=== PATIENT | male | born 1955 | race Caucasian/White ===

== ENCOUNTER 2016-10-17 05:32 | Inpatient (IN) ==
[2016-10-17] MEDS ORDERED: ALVIMOPAN 12 MG CAPSULE PO ONE (06:00)
[2016-10-17] MEDS ORDERED: ALVIMOPAN 12 MG CAPSULE ONE (06:00)
[2016-10-17] MEDS ORDERED: SODIUM PHOSPHATE ENEMA 133 ML BOTTLE RECTAL ONE ×2 (06:00→06:20)
[2016-10-17] MEDS: LACTATED RINGERS 1,000 ML IV SCH ×2 (06:30→10:01)
--- NOTE | 2016-10-17 07:00 | History and Physical Update ---
History and Physical Update - History and Physical H&P was reviewed, the patient examined and there: are no changes in the patients condition since last H&P was completed.
[2016-10-17] MEDS ORDERED: PROPOFOL 200 MG/20 ML VIAL IV ONE (07:08)
[2016-10-17] MEDS ORDERED: NEOSTIGMINE 10 MG/10 ML VIAL ONE (07:08)
[2016-10-17] MEDS ORDERED: MINERAL OIL/PETROLATUM OPH OINT 3.5 GM TUBE ONE (07:08)
[2016-10-17] MEDS ORDERED: LIDOCAINE 2% 5 ML VIAL ONE (07:08)
[2016-10-17] MEDS ORDERED: ONDANSETRON 4 MG/2 ML VIAL ONE (07:08)
[2016-10-17] MEDS ORDERED: ROCURONIUM 100 MG/10 ML VIAL IV ONE (07:08)
[2016-10-17] MEDS ORDERED: KETOROLAC 30 MG/1 ML VIAL ONE (07:08)
[2016-10-17] MEDS ORDERED: GLYCOPYRROLATE 0.4 MG/2 ML VIAL ONE (07:08)
[2016-10-17] MEDS ORDERED: cefTRIAXone 1,000 MG VIAL ONE (07:16)
[2016-10-17] MEDS ORDERED: cefTRIAXone 1,000 MG in SODIUM CHLORIDE 0.9% 100 ML IV ONE (07:43)
[2016-10-17 08:14] LABS: Apearance,Urine Slightly Hazy (Clear); Bilirubin,Urine Negative (Negative); Blood, Urine Moderate mg/dL (Negative); Glucose,Urine (UA) Negative (Negative); Ketones,Urine Negative (Negative); Mucus,Urine Occasional /LPF (Occasional); Nitrite,Urine Negative (Negative); Protein,Urine Negative; RBC,Urine 12 /HPF (0-4); Squamous Epithelial Cell,Urine Occasional /HPF (0-10); Urine Color Straw (Yellow); Urine Specific Gravity 1.009 (1.001-1.035); Urine Urobilinogen < 2.0 EU/DL (0.2-1.0); WBC,Urine 1 /HPF (0-6)
[2016-10-17] MEDS ORDERED: LACTULOSE 20 GM/30 ML UDCUP PO PRN (11:07)
[2016-10-17] MEDS ORDERED: diphenhydrAMINE 50 MG/1 ML VIAL IV PRN (11:07)
[2016-10-17] MEDS ORDERED: ONDANSETRON 4 MG/2 ML VIAL IV PRN ×2 (11:07→11:55)
--- NOTE | 2016-10-17 11:28 | Operative Note ---
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 He's elected to undergo surgery. Proposed procedure of robotic-assisted laparoscopic radical prostatectomy was explained at length and in detail. Risk, complications, outcomes, sequelae, prognosis and alternative therapy was thoroughly discussed. Patient understood this and agreed to proceed Patient was brought to the operative suite and placed table in supine position. He's been given a general endotracheal anesthetic and then secured in place to low lithotomy position in the usual fashion for radical prostatectomy. He was placed in the Trendelenburg position. An incision created at the upper edge of the umbilicus. Veress needle was then used to valladares the abdominal wall into the abdomen peritoneal cavity and confirmed with the saline drop test into click technique. Millimeter trocar was placed in this. Kell was inserted and intra-abdominal contents were examined. There was no vascular or bowel injury. There some adhesions of the sigmoid to the left lower lateral wall of the pelvis and lower abdomen. 8 millimeter trocar was placed 8 centimeters lateral to the camera on both sides. This was done under direct vision. Cystoscopy was placed between #1 , on the left and the camera port. This was placed about 4 inches above them. And the fourth was placed lateral to the right hand third arm at least 8 centimeters. These were all placed under direct vision. The robot was then docked and I broke scrub and went to the console. Susy bipolar forceps were in the left and a monopolar scissors and the right and this dissection was begun posteriorly. The cul-de-sac was incised and dissection down to the ampulla of the vas deferens. Each vas deferens was isolated and clipped with a Weck clip and then divided. Seminal vesicles were then dissected out of their bed. Care was taken to use minimal cautery as this is a nerve sparing. A window in the fascia was then created posteriorly. Attention was directed to the creating a bladder flap. Incision created lateral to the median umbilical ligaments from the internal ring to the anterior abdominal wall. This was done on both sides. Median umbilical ligaments were then divided and the bladder flap was dropped down. Endopelvic fascia was incised. Attachments were dissected off the prostate. Unfortunately there is a large vein right in the middle of the prostate on both sides coming from the dorsal venous complex. This is going to make a nerve sparing difficult. Attention was then directed to the bladder neck. With light traction on the Brownlee in bunching of the midline tissue junction of the bladder and prostate were identified. This was incised with cautery and dissection sharply down. The bladder neck in wasn't entered. The Brownlee balloon was deflated and the posterior bladder neck was incised. The pedicles were taken down sequentially with Weck clips and divided. Prostate was then freed up. Dissection continued posteriorly where the seminal vesicles and the and the vas deferens were then pulled up through the wound. Posterior lateral pedicles were taken down intermittently with Weck clips and divided. On both sides the lateral prostatic fascia was then dissected off. Care had to be done due to the large vein on both sides but ultimately we we got him off without any significant bleeding. Prostate was lifted up and then the neurovascular bundle posterior laterally was then dissected off with sharp dissection. Small veins were left to coagulate. This was done on both sides. Dissection was continued up to the apex. Dorsal venous complex was ligated with #1 Vicryl. This was then divided and dissection was continued posteriorly to the urethra which was divided anteriorly. Brownlee catheter was pulled back and the posterior urethra was then divided. The remainder of the attachments at the prostate were divided and the prostate was seminal vesicles and vasa were then removed and placed the specimen bag. The pelvis was irrigated and drained. No dissection was done on both sides. Having tissue BX to the iliac vein was entered and the lymphatic tissue was swept and obturator fossa. The obturator nerve was kept in vision at all times and not injured. These jaswinder packages were then sent separately. A 2-0 Vicryl was used to approximate the posterior urethral plate to the posterior bladder neck. 3 oh codeine was then used to provide anastomosis. We removed began the 6 o' clock position outside and on both sides and then ran the anastomosis from the 7 o'clock to 11 o'clock and 5 o'clock to 1 o'clock position. Prior to complete closure and the 22 Syrian Brownlee was then inserted and 12 cc were placed in the balloon. The anastomotic suture was tied securely. The catheter was irrigated and this was a watertight anastomosis. Pneumoperitoneum was dropped there was a small bleeding vein on the neurovascular bundle on the right side. A piece of Surgicel was placed on this. The robot was undocked and the patient was laid flat and the trochars were removed. The assistance port incision was extended and the rectus muscles were divided slightly. The specimen bag containing the prostate and seminal vesicles was then removed. This wound was then closed with a running 0 Monocryl. All wounds are irrigated him and drained and hemostasis provided by the cautery. The skin of all wounds were closed skin clips. Sterile dressings were placed on the wound. The Brownlee catheter was left to gravity drainage. Patient was then awakened from general anesthesia having tolerated procedure well and was sent to the recovery room in stable condition. All sponge, needle and instrument counts correct times 2. Anesthesia: GETA Surgeon / Physician: Shahram Grover Estimated blood loss: other (150cc) Specimens: other (prostate with seminal vesicles, bilateral pelvic nodes) Condition: stable Disposition: PACU Discharge Plan - Discharge Medications No Action No Known Home Medications [No Known Home Medications] - Follow Up or Referral - Forms/Instructions
[2016-10-17] MEDS ORDERED: HYDROmorphone PCA 30 MG/30 ML SYRINGE IV SCH (11:30)
[2016-10-17] MEDS: HYDROmorphone 2 MG/1 ML VIAL IV PRN ×4 (12:00→12:15)
--- NOTE | 2016-10-17 14:20 | Anesthesia ---
Anesthesia Post OP - Post Ansesthetic Evaluation Patient seen in post op: Yes Resp: within normal limits CV: within normal limits Mental: within normal limits Temp: within normal limits [id number]: within normal limits Nausea and Vomiting: within normal limits Pain: within normal limits
[2016-10-17] MEDS: DEXTROSE 5% NACL 0.45% 1,000 ML IV SCH (14:45)
--- NOTE | 2016-10-17 16:51 | Urology Progress Note ---
Urology - PN: Subj Interval history: Postoperative check. Urine is blood-tinged. He is awake and alert. Vital signs are stable. Patient is stable. Exam - Constitutional Vitals: Period Temp Pulse Resp BP Sys/Brunner Pulse Ox Last 24 Hr 97.0 F-97.5 F 48-64 12-20 107-148/59-88 94-100
[2016-10-17] MEDS: SOLIFENACIN 5 MG TABLET PO SCH (18:07)
--- NOTE | 2016-10-17 18:49 | Pulmonology Progress Note ---
Pulmonary - PN: Subj Interval history: This is a 61-year-old white male. He was cleared for anesthesia and surgery in my office. Earlier today the patient had a radical prostatectomy for prostate cancer. He has done well. His other problems or diverticulosis and he has had an incomplete right bundle branch block. He has a regular sinus rhythm. 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 Vital signs. See below. Medicines have been reviewed. Head eyes ears nose and throat are normal. Neck is normal. Chest is clear. Heart no gallop Abdomen a few scattered bowel sounds Extremities nothing to suggest deep venous thrombophlebitis Neurologic. Cranial nerves are intact long track motor functions intact. Remainder the physical exam is noncontributory. Plan. 1 continue home medicines. 2. Follow-up lab Exam (Progress Note) - Constitutional Vitals: Period Temp Pulse Resp BP Sys/Brunner Pulse Ox Last 24 Hr 97.0 F-98.0 F 48-66 12-20 107-148/59-88 94-100
[2016-10-17] MEDS: ALVIMOPAN 12 MG CAPSULE PO SCH (20:17)
[2016-10-18] MEDS: DEXTROSE 5% NACL 0.45% 1,000 ML IV SCH (00:21)
[2016-10-18 05:37] LABS: Basophils % 0.1 % (0.0-0.8); Hematocrit 37.1 VOL% (42.0-52.0); Hemoglobin 12.4 GM/DL (14.0-18.0); Immature Granulocytes % 0.4 %; Immature Granulocytes Absolute 0.05 #; Lymphocytes % 7.5 % (21.2-54.2); Mean Corpuscular HGB Conc 33.4 GM/DL (32-36); Mean Corpuscular Hemoglobin 33 PG (27-34); Mean Corpuscular Volume 99.2 FL (87-102); Mean Platelet Volume 11.7 FL (9.6-12.0); Monocytes # 0.8 10*3/uL (0.11-0.8); Monocytes % 6.3 % (1.7-12.7); Neutrophils # 11.4 10*3/uL (1.4-7.4); Neutrophils % 85.7 % (38.7-73.9); Platelet Count 171 10*3/uL (130-400); Red Blood Count 3.74 10*6/uL (3.8-5.5); Red Cell Distribution Width 12.6 % (9.3-17.3); White Blood Count 13.3 10*3/uL (4.5-13.71)
[2016-10-18 06:06] LABS: Calcium 8.2 MG/DL (8.5-10.1); Osmolality,Calculated 281.5 MOS/KG (273-304); Potassium 3.9 MMOL/L (3.5-5.1)
[2016-10-18] MEDS: LACTATED RINGERS 1,000 ML IV SCH (06:17)
[2016-10-18] MEDS ORDERED: oxyCODONE/ACETAMINOPHEN 5-325 MG TABLET PO PRN (08:54)
[2016-10-18] MEDS ORDERED: MEPERIDINE 50 MG/1 ML VIAL IM PRN (08:55)
--- NOTE | 2016-10-18 08:58 | Urology Progress Note ---
Urology - PN: Subj Interval history: Postop day 1. Patient had a stable night. His urine is clearing. His abdomen is soft and flat. H&H is 12 and 34. Electrolytes normal. Creatinine is normal. Continue progressive care. Should be able to be discharged tomorrow 10/19/16. He will have his appointments and prescriptions. He will see my nerves on 10/26/16 for clip and catheter removal. He will see me the following week. Exam - Constitutional Vitals: Period Temp Pulse Resp BP Sys/Brunner Pulse Ox Last 24 Hr 97.0 F-99 F 48-89 12-20 107-148/59-88 94-100 Results - Labs CBC & BMP: 10/18/16 05:26 10/18/16 05:26 Specialty Discharge - Follow Up or Referrals Follow up with: Shahram Grover MD [Family Provider] - (Appt with Nunu Yang for nelson & staple removal on Oct [address] Grover on Oct 31 )
[2016-10-18] MEDS: ALVIMOPAN 12 MG CAPSULE PO SCH ×2 (09:32→20:13)
[2016-10-18] MEDS: SOLIFENACIN 5 MG TABLET PO SCH (09:32)
[2016-10-18] MEDS ORDERED: ALUMINUM/MAGNES/SIMETH MAX STR 30 ML UDCUP PO PRN (10:27)
[2016-10-18] MEDS: PANTOPRAZOLE 40 MG VIAL IV SCH (11:00)
[2016-10-18] MEDS: ALUMINUM/MAGNES/SIMETH MAX STR 30 ML UDCUP PO SCH ×3 (11:00→23:48)
--- NOTE | 2016-10-18 11:22 | Pulmonology Progress Note ---
Pulmonary - PN: Subj Interval history: Wilver Nieves, ANP-BC, GNP-BC, acting as scribe for Dr. Delano Madrigal Mr. Arriaga was seen today along with his . The patient is post-op day one from a robotic assisted radical prostatectomy. He states he is doing well from a surgical standpoint. He complains of incessant hiccupping. He denies flatus or a bowel movement. We've instructed him to not overeat since his diet is being advanced. He reports vomiting last night. We will treat him with Mylanta QID and PRN and Protonix. Medications have been reviewed. Mylanta and Protonix have been added. Labs have been reviewed. White count is 13,300 with 85.7% segs; H&H 12.4/37.1; PLT count 171,000; creatinine 1.10, BUN 18, electrolytes are normal. Urinalysis yesterday showed no evidence of infection. Exam (Progress Note) - Constitutional Vitals: Period Temp Pulse Resp BP Sys/Brunner Pulse Ox Last 24 Hr 97.0 F-99 F 48-89 12-20 113-148/64-88 94-100 Exam: Chest is clear Heart no gallop Abd is nondistended; but there are no bowel sounds heard Ext with nothing to suggest acute DVT Psych oriented x 3 Neuro long tract motor function is intact Plan: Mylanta and Protonix as above. Continue present treatment. Results - Labs CBC & BMP: 10/18/16 05:26 10/18/16 05:26 Specialty Discharge - Follow Up or Referrals Follow up with: Shahram Grover MD [Family Provider] - (Appt with Nunu Yang for nelson & staple removal on Oct [address] Grover on Oct 31 )
[2016-10-18] MEDS: oxyCODONE/ACETAMINOPHEN 5-325 MG TABLET PO PRN ×2 (15:47→20:13)
[2016-10-19] MEDS: ALUMINUM/MAGNES/SIMETH MAX STR 30 ML UDCUP PO SCH (05:55)
--- NOTE | 2016-10-19 08:02 | Urology Progress Note ---
Urology - PN: Subj Interval history: The patient is doing well postoperatively. He will continue to take laxatives as needed for constipation. His urine shows minimal hematuria. He'll be discharged today on previously written prescriptions Exam - Constitutional Vitals: Period Temp Pulse Resp BP Sys/Brunner Pulse Ox Last 24 Hr 98 F-100.6 F 64-76 16-18 106-144/61-71 94-97 Results - Labs CBC & BMP: 10/18/16 05:26 10/18/16 05:26 Specialty Discharge - Follow Up or Referrals Follow up with: Shahram Grover MD [Family Provider] - (Appt with Nunu Yang for nelson & staple removal on Oct [address] Grover on Oct 31 )
[2016-10-19] MEDS: PANTOPRAZOLE 40 MG VIAL IV SCH (08:21)
[2016-10-19] MEDS: ALVIMOPAN 12 MG CAPSULE PO SCH (08:22)
[2016-10-19] MEDS: SOLIFENACIN 5 MG TABLET PO SCH (08:22)
[2016-10-19 08:29] VITALS: BP 129/56
--- NOTE | 2016-10-19 11:17 | Pulmonology Progress Note ---
Pulmonary - PN: Subj Interval history: Wilver Nieves, ANP-BC, GNP-BC, acting as scribe for Dr. Delano Madrigal Your plans have been noted. We agree. We will sign off. Please reconsult PRN. Exam (Progress Note) - Constitutional Vitals: Period Temp Pulse Resp BP Sys/Brunner Pulse Ox Last 24 Hr 98 F-100.6 F 64-76 16-18 106-144/56-71 94-97 Results - Labs CBC & BMP: 10/18/16 05:26 10/18/16 05:26 Specialty Discharge - Follow Up or Referrals Follow up with: Shahram Grover MD [Family Provider] - (Appt with Nunu Yang for nelson & staple removal on Oct 26 at 8:[address] Grover on Oct 31 2:00)
--- NOTE | 2016-10-19 15:40 | Pathology Report from [facility] ---
ACCESSION # : [id number] PATIENT NAME : Earl Arriaga ORDERING DR : MIKE GALLEGOS MD CLINICAL HX: Prostate cancer POST-OP DX: Same SPECIMEN INFO: #1 Left neurovascular bundle #2 Segment of vas #3 Right obturator node #4 Left obturator node #5 Prostate GROSS DESCRIPTION: #1 Received fresh for frozen section labeled with the patient 's name "EARL ARRIAGA" and consists of a 0.5 x 0.2 cm hyperemic soft tissue fragment. Submitted in cassette #1 for frozen section.#2 Received in formalin labeled with the patient's name "EARL ARRIAGA and #2" and consists of a 2.7 x 1.0 cm pink-carvalho tissue fragment with a plastic staple present. Sectioned and submitted in cassette #2.#3 Received fresh labeled with the patient's name "EARL ARRIAGA and #3" and consists of a pink-carvalho fatty tissue fragment measuring 1.7 x 1.5 cm. Sectioned and submitted in cassette #3.#4 Received fresh labeled with the patient's name "EARL ARRIAGA and #4" and consists of a hyperemic fatty tissue fragment measuring 2.5 x 2.0 cm. Sectioned and submitted in cassette #4.#5 Received in formalin labeled with the patient's name "EARL ARRIAGA and #5" consists of a 41 gram prostate with attached vas and seminal vesicles measuring 5.1 x 3.6 x 2.9 cm. Cut surfaces are pink white carvalho. Sections submitted 5A-[place], 5B-Base, 5C-Seminal vesicles and margins, 5D-J- Right prostate which is inked black, apex to base, 5K-O-Left prostate which is inked blue, apex to base. DIAGNOSIS FOR EARL ARRIAGA: #1 - #5PROSTATE, RADICAL PROSTATECTOMY (5.1 x 3.6 x 2.9 cm, 41gm): TYPE: Adenocarcinoma of prostate (bilateral lobes). GRADE: Primary Pattern Grade 3; Secondary Pattern Grade 4; Total Camilla Score 7. TUMOR QUANTITATION: Percentage of prostate involved by tumor 60%; Dominant nodule = 9 mm. MARGINS: Margins involved by invasive carcioma (apex). EXTRAPROSTATIC EXTENSION: Not Identified. SEMINAL VESICLE INVASION: Not identified. TREATMENT EFFECT: Not identified. LYMPH-VASCULAR INVASION: Not identified. PERINEURAL INVASION: Present. LYMPH NODES: Pelvic lymph node dissection. Five nodes negative for tumor. AJCC PATHOLOGIC STAGE IIB ([id number]). SERVICE DATE: 10/17/2016 REPORT DATE: 10/19/2016 PATHOLOGIST: Felix Mckay
== END 2016-10-19 10:00 | disposition home or self-care (01) | DRG 708 ==
LOC: N.OR 05:32 → N.SDSINP 05:35 → N.5E 11:07
PROVIDERS: ADMIT Urology; ATTEND Urology

== ENCOUNTER 2022-01-12 19:39 | Inpatient (IN) ==
[2022-01-12 21:14] LABS: Basophils % 0.1 % (0.0-0.8); Eosinophils % 0.1 % (0.00-10.9); Hemoglobin 15.9 GM/DL (14.0-18.0); Immature Granulocytes % 0.3 %; Immature Granulocytes Absolute 0.02 #; Lymphocytes # 0.5 10*3/uL (1.4-4.0); Lymphocytes % 6.3 % (21.2-54.2); Mean Corpuscular HGB Conc 33.8 GM/DL (32-36); Mean Corpuscular Volume 99.2 FL (87-102); Mean Platelet Volume 10.6 FL (9.6-12.0); Monocytes # 0.4 10*3/uL (0.11-0.8); Monocytes % 5.8 % (1.7-12.7); Neutrophils % 87.4 % (38.7-73.9); Platelet Count 152 T/CUMM (130-400); Red Blood Count 4.74 MC/CUMM (3.8-5.5); Red Cell Distribution Width 12.7 % (9.3-17.3); White Blood Count 7.6 T/CUMM (4-12)
[2022-01-12 21:25] LABS: INR 1.1; PT Patient Result 12.4 SECS (10.5-12.0); Partial Thromboplastin Time 24.8 SECS (23.8-32.1)
[2022-01-12 21:34] LABS: Bilirubin,Total 1.4 MG/DL (0.20-1.00); Calcium 8.5 MG/DL (8.5-10.1); Osmolality,Calculated 279.7 MOS/KG (273-304); Total Protein 6.9 G/DL (6.4-8.2)
[2022-01-12] MEDS ORDERED: SODIUM CHLORIDE 0.9% 1,000 ML IV STA (22:36)
[2022-01-12] MEDS ORDERED: NICOTINE 21 MG/24 HR PATCH TRANSDERM PRN (22:56)
[2022-01-12] MEDS ORDERED: ACETAMINOPHEN 325 MG TABLET PO PRN (22:56)
[2022-01-12] MEDS ORDERED: guaiFENesin/DM ER 600-30 MG TABLET PO PRN (22:56)
[2022-01-12] MEDS ORDERED: diphenhydrAMINE CAP 25 MG CAPSULE PO PRN (22:56)
[2022-01-12] MEDS ORDERED: hydrALAZINE 20 MG/1 ML VIAL IV PRN (22:56)
[2022-01-12] MEDS ORDERED: GLUCAGON 1 MG VIAL IM PRN (22:56)
[2022-01-12] MEDS ORDERED: ENOXAPARIN 100 MG/ML SYRINGE SUBCUT SCH (23:00)
[2022-01-12] MEDS ORDERED: DEXTROSE 10% 250 ML BAG IV PRN (23:01)
[2022-01-12] MEDS ORDERED: METOPROLOL TARTRATE 25 MG TABLET PO STA (23:28)
[2022-01-13] MEDS ORDERED: DILTIAZEM 50 MG/10 ML VIAL IV ONE (03:30)
[2022-01-13 03:54] LABS: Mucus,Urine Occasional /LPF (Occasional); RBC,Urine 2 /HPF (0-4)
[2022-01-13 03:56] LABS: Bilirubin,Urine Small mg/dL (Negative); Blood, Urine Negative (Negative); Glucose,Urine (UA) Negative (Negative); Ketones,Urine Negative (Negative); Nitrite,Urine Negative (Negative); Protein,Urine 30 mg/dL (Negative); Urine Appearance Clear (Clear); Urine Color Yellow (Yellow); Urine Specific Gravity > 1.030 (1.001-1.035); Urine pH 5.5 (4.5-8.0)
[2022-01-13 04:12] LABS: Barbiturates Screen,Urine Negative (Negative); Benzodiazepines Screen,Urine Negative (Negative); Cannabinoid Screen,Urine Negative (Negative); Opiate Screen,Urine Negative (Negative); Phencyclidine Screen,Urine Negative (Negative)
[2022-01-13 04:50] LABS: Basophils % 0.1 % (0.0-0.8); Hematocrit 42.5 VOL% (42.0-52.0); Hemoglobin 14.3 GM/DL (14.0-18.0); Immature Granulocytes % 0.4 %; Immature Granulocytes Absolute 0.03 #; Lymphocytes # 0.8 10*3/uL (1.4-4.0); Lymphocytes % 11.9 % (21.2-54.2); Mean Corpuscular HGB Conc 33.6 GM/DL (32-36); Mean Corpuscular Volume 98.8 FL (87-102); Mean Platelet Volume 11.1 FL (9.6-12.0); Monocytes # 0.5 10*3/uL (0.11-0.8); Monocytes % 7.6 % (1.7-12.7); Platelet Count 138 T/CUMM (130-400); Red Cell Distribution Width 12.7 % (9.3-17.3); White Blood Count 6.8 T/CUMM (4-12)
[2022-01-13 05:13] LABS: Osmolality,Calculated 276.8 MOS/KG (273-304); Potassium 3.4 MMOL/L (3.5-5.1); Thyroid Stimulating Hormone 0.345 uIU/ml (0.358-3.74)
[2022-01-13] MEDS ORDERED: POTASSIUM CHLORIDE 20 MEQ TABLET PO PRN (05:31)
[2022-01-13] MEDS ORDERED: AMIODARONE INJ 150 MG in DEXTROSE 5% 100 ML IV ONE (08:41)
[2022-01-13] MEDS ORDERED: METOPROLOL TARTRATE 25 MG TABLET PO SCH (09:00)
[2022-01-13] MEDS ORDERED: AMIODARONE INJ 450 MG in DEXTROSE 5% 241 ML IV SCH (09:00)
[2022-01-13] MEDS ORDERED: POTASSIUM CHLORIDE 20 MEQ TABLET PO ONE (09:05)
[2022-01-13] MEDS: DILTIAZEM 60 MG TABLET PO SCH ×2 (10:11→21:37)
[2022-01-13] MEDS: APIXABAN 5 MG TABLET PO SCH ×2 (10:11→21:36)
[2022-01-13] MEDS: AMIODARONE INJ 450 MG in DEXTROSE 5% 241 ML IV SCH (18:50)
[2022-01-14] MEDS: ZALEPLON 5 MG CAPSULE PO PRN ×3 (01:25→23:19)
[2022-01-14 06:03] LABS: Basophils % 0.1 % (0.0-0.8); Eosinophils # 0.1 10*3/uL (0.0-0.87); Eosinophils % 1.8 % (0.00-10.9); Hematocrit 41.9 VOL% (42.0-52.0); Hemoglobin 14.3 GM/DL (14.0-18.0); Immature Granulocytes % 0.5 %; Immature Granulocytes Absolute 0.04 #; Lymphocytes # 1.2 10*3/uL (1.4-4.0); Mean Corpuscular HGB Conc 34.1 GM/DL (32-36); Mean Corpuscular Volume 98.1 FL (87-102); Mean Platelet Volume 11.2 FL (9.6-12.0); Monocytes # 0.8 10*3/uL (0.11-0.8); Monocytes % 10.6 % (1.7-12.7); Platelet Count 142 T/CUMM (130-400); Red Blood Count 4.27 MC/CUMM (3.8-5.5); Red Cell Distribution Width 12.6 % (9.3-17.3); White Blood Count 7.8 T/CUMM (4-12)
[2022-01-14 06:12] LABS: Calcium 8.5 MG/DL (8.5-10.1); Osmolality,Calculated 273.8 MOS/KG (273-304); Potassium 3.9 MMOL/L (3.5-5.1)
[2022-01-14 06:21] LABS: Free T4 (Free Thyroxine) 0.94 NG/DL (0.76-1.46); Thyroid Stimulating Hormone 1.77 uIU/ml (0.358-3.74)
[2022-01-14 07:17] LABS: Platelet Estimate Adequate
[2022-01-14] MEDS: APIXABAN 5 MG TABLET PO SCH ×2 (10:35→20:58)
[2022-01-14] MEDS: DILTIAZEM 60 MG TABLET PO SCH ×2 (10:36→20:58)
[2022-01-14] MEDS: AMIODARONE INJ 450 MG in DEXTROSE 5% 241 ML IV SCH ×2 (11:50→11:51)
[2022-01-15 05:06] LABS: Basophils % 0.2 % (0.0-0.8); Eosinophils # 0.2 10*3/uL (0.0-0.87); Eosinophils % 2.6 % (0.00-10.9); Hematocrit 44.6 VOL% (42.0-52.0); Immature Granulocytes % 0.3 %; Immature Granulocytes Absolute 0.02 #; Lymphocytes # 1.3 10*3/uL (1.4-4.0); Mean Corpuscular HGB Conc 33.6 GM/DL (32-36); Mean Corpuscular Volume 98.2 FL (87-102); Mean Platelet Volume 10.7 FL (9.6-12.0); Monocytes # 0.7 10*3/uL (0.11-0.8); Monocytes % 10.6 % (1.7-12.7); Neutrophils % 66.3 % (38.7-73.9); Platelet Count 141 T/CUMM (130-400); Red Blood Count 4.54 MC/CUMM (3.8-5.5); Red Cell Distribution Width 12.3 % (9.3-17.3); White Blood Count 6.5 T/CUMM (4-12)
[2022-01-15 05:40] LABS: Calcium 8.9 MG/DL (8.5-10.1); Potassium 3.7 MMOL/L (3.5-5.1)
[2022-01-15] MEDS ORDERED: SODIUM CHLORIDE 0.9% 1,000 ML IV SCH (08:30)
[2022-01-15] MEDS ORDERED: propofoL 200 MG/20 ML VIAL IV ONE (08:54)
[2022-01-15] MEDS ORDERED: ETOMIDATE 20 MG/10 ML VIAL IV ONE (08:54)
[2022-01-15] MEDS ORDERED: AMIODARONE 200 MG TABLET PO SCH (09:00)
[2022-01-15] MEDS: AMIODARONE INJ 450 MG in DEXTROSE 5% 241 ML IV SCH (09:58)
[2022-01-15] MEDS: APIXABAN 5 MG TABLET PO SCH (09:59)
[2022-01-15] MEDS: DILTIAZEM 60 MG TABLET PO SCH (09:59)
[2022-01-15 11:13] VITALS: BP 139/85
== END 2022-01-15 15:24 | disposition home or self-care (01) | DRG 310 ==
LOC: N.ED 19:39 → N.TELEN 23:56
PROVIDERS: ADMIT Internal Medicine; ATTEND Internal Medicine